=== PATIENT | female | born 1955 | race African-American/Black ===

== ENCOUNTER 2021-07-26 06:02 | Emergency (ER) | payer MEDICARE, SELFPAY ==
--- NOTE | ~2021-07-26 | XR_ITS ---
EXAMINATION: XR hip LT min 3V w AP pelvis EXAM DATE: 07/26/2021 06:48 INDICATION: Pain status post ground level fall this am. TECHNIQUE: Left hip frontal, crosstable lateral and 'frog-leg' projections for interpretation. Fronta l projection pelvis. There is no prior study for comparison. FINDINGS: Smooth left hip femoral head contour, no radiographic evidence of avascular necrosis. Ther e is mild to moderate symmetric bilateral hip primary osteoarthritis. There are no acute fractures or dislocations identified. There is no subcutaneous gas. The soft tissue is unremarkable. There ar e no radiopaque foreign bodies. IMPRESSION: 1. Pelvis, left hip exam without acute osseous findings. 2. Mild to moderate bilateral hip osteoarthritis. Reviewed, dictated and finalized at location A. ILE COATING MACHINE OPERATOR
--- NOTE | ~2021-07-26 | CT_ITS ---
EXAMINATION: CT cervical spine wo con, CT brain wo con EXAM DATE: 07/26/2021 07:01 INDICATION: Neck pain status post fall this morning. Head injury. TECHNIQUE: Spiral CT of the head was performed without contrast. Axial, coronal and sagittal images were reviewed. Spiral CT of the cervical spine was performed without contrast. Axial images were rev iewed. Coronal and sagittal reformatted images were also reviewed. The dose-length product (DLP) fo r this examination was 198.25 (accession [id number]), 681.00 (accession [id number]) mGy-cm. The exposure was tailored according to patient size, and iterative reconstruction (ASIR) was used as additional dose reduction technique. There is no prior study for comparison. FINDINGS: HEAD CT: There is no acute intraparenchymal hemorrhage. No evidence of intraparenchymal brain mass l esion. No evidence of acute infarction. There is no mass effect or midline shift. There is no obstru ctive hydrocephalus suspected. There are no extra-axial collections. There are no acute calvarial f ractures. The orbits are unremarkable. Soft tissue is unremarkable. The visualized sinuses and mas toid air cells are well aerated. CERVICAL CT: There is no evidence of acute cervical fracture. The odontoid process is intact. Pre- dens space is normal. Prevertebral soft tissue is normal. There are no soft tissue abnormalities id entified. There is no disc space widening or traumatic vertebral body subluxation suspected. Modera te cervical thoracic disc disease, mild to moderate cervical arthropathy. A detailed level by level evaluation of spondylosis can be added as addendum if requested. IMPRESSION: 1. No acute intracranial findings or cervical fracture. Reviewed, dictated and finalized at location A. ATOR SPECIALIST COMMUNICATIONS IMPRESSION: 1. No acute intracranial findings or cervical fracture.
--- NOTE | ~2021-07-26 | XR_ITS ---
EXAMINATION: XR shoulder LT min 2V EXAM DATE: 07/26/2021 06:48 INDICATION: pain status post ground level fall this AM . TECHNIQUE: The following left shoulder projections obtained: frontal projection with internal rotatio n, frontal projection with external rotation, Grashey, and scapular Y view (4+ views). There is no p rior study for comparison. FINDINGS: No evidence of left shoulder rotator cuff calcific tendinosis. There is mild glenohumeral joint, moderate acromioclavicular joint primary osteoarthritis. There are no acute fractures or dis locations identified. There is no subcutaneous gas. The soft tissue is unremarkable. There are no radiopaque foreign bodies. IMPRESSION: 1. XR shoulder LT min 2V exam without acute osseous findings. 2. Osteoarthritis. Reviewed, dictated and finalized at location A. MOTIVE FLEET SUPERVISOR
--- NOTE | ~2021-07-26 | XR_ITS ---
EXAMINATION: XR hand LT min 3V EXAM DATE: 07/26/2021 06:48 INDICATION: pain to left thumb status post fall this am . TECHNIQUE: Left hand frontal, lateral and oblique projections obtained and reviewed. There is no miranda or study for comparison. FINDINGS: Left metacarpal bones are unremarkable. There are no acute fractures or dislocations ident ified. There is no subcutaneous gas. The soft tissue is unremarkable. There are no radiopaque for eign bodies. IMPRESSION: 1. XR hand LT min 3V exam without acute osseous findings. Reviewed, dictated and finalized at location A. ESTER OPERATOR
[2021-07-26 06:00] VITALS: BP 131/73; PULSE 73; RESP 15; TEMP 36.4; O2SAT 95
[2021-07-26 06:08] VITALS: BP 131/73; PULSE 73; RESP 15; O2SAT 95
--- NOTE | 2021-07-26 06:25 | ED.GENADULT ---
HPI - General Adult General Chief complaint: Fall <Graeme Pierson MD - Last Filed: 07/26/21 06:29> Stated complaint: ground level fall <Graeme Pierson MD - Last Filed: 07/26/21 06:29> Time Seen by Provider: 07/26/21 06:12 <Graeme Pierson MD - Last Filed: 07/26/21 06:29> History of Present Illness HPI narrative: Patient 66-year-old female presents the emergency department with chief complaint of fall. Patient reports that she was walking into work tripped and landed on the ground. The patient reports she has pain in the left shoulder left hip left hand the patient reports that she has pain in her neck and also has a headache. Patient reports he has history of chronic pain and reports that her issues were aggravated by the fall. Patient denies loss of consciousness denies focal neurological deficit. <Graeme Pierson MD - Last Filed: 07/26/21 06:29> Related Data Home medications: Home Medications Medication Instructions Recorded Confirmed diclofenac sodium 1 % topical gel 2 g TOPICAL BID g 01/27/21 <Graeme Pierson MD - Last Filed: 07/26/21 06:29> Allergies/adverse reactions: Allergies Allergy/AdvReac Type Severity Reaction Status Date / Time acetaminophen Allergy Severe Swelling Verified 07/26/21 06:06 codeine Allergy Severe SWELLING Verified 07/26/21 06:06 morphine Allergy Severe Swelling Verified 07/26/21 06:06 naproxen Allergy Severe Swelling Verified 07/26/21 06:06 Penicillins Allergy Severe Rash Verified 07/26/21 06:06 propoxyphene Allergy Severe Swelling Verified 07/26/21 06:06 <Graeme Pierson MD - Last Filed: 07/26/21 06:29> Review of Systems Review of Systems: A 10 system review of systems was completed on the patient and is negative except for what is stated in the HPI. Nursing and ancillary documentation was reviewed. <Graeme Pierson MD - Last Filed: 07/26/21 06:29> Exam Narrative: GENERAL: Well-appearing, well-nourished, and in no acute distress. HEAD: Normocephalic, atraumatic. EYES: PERRLA and EOMI. ENT: Nares clear, no rhinorrhea or epistaxis. Mucous membranes moist. NECK: Supple. Tenderness to palpation the midline of the cervical spine CHEST: Clear to auscultation. No respiratory distress. HEART: Regular rate and rhythm. No murmur heard. Normal peripheral pulses. ABDOMEN: Soft, nontender, nondistended, normal active bowel sounds. EXTREMITIES: Normal range of motion. No edema. Tenderness to palpation in the left shoulder, left hand and left hip no deformity noted SKIN: Warm, dry, no rash. NEURO: No focal deficits. Alert and oriented x3. PSYCH: Normal mood and affect. <Graeme Pierson MD - Last Filed: 07/26/21 06:29> Course Vital Signs Vital signs: Vital Signs Temperature 36.4 C L 07/26/21 06:00 Pulse Rate 73 07/26/21 06:00 Respiratory Rate 15 07/26/21 06:00 Blood Pressure 131/73 07/26/21 06:00 Pulse Oximetry 95 07/26/21 06:00 Temperature 36.4 C L 07/26/21 06:00 Pulse Rate 100 07/26/21 07:16 Respiratory Rate 14 07/26/21 07:16 Blood Pressure 128/73 07/26/21 07:16 Pulse Oximetry 100 07/26/21 07:16 <Graeme Pierson MD - Last Filed: 07/26/21 06:29> Medical Decision Making Vital Signs Vital Signs: Vital Signs Temperature 36.4 C L 07/26/21 06:00 Pulse Rate 73 07/26/21 06:00 Respiratory Rate 15 07/26/21 06:00 Blood Pressure 131/73 07/26/21 06:00 Pulse Oximetry 95 07/26/21 06:00 Temperature 36.4 C L 07/26/21 06:00 Pulse Rate 100 07/26/21 07:16 Respiratory Rate 14 07/26/21 07:16 Blood Pressure 128/73 07/26/21 07:16 Pulse Oximetry 100 07/26/21 07:16 <Graeme Pierson MD - Last Filed: 07/26/21 06:29> Discharge Plan Discharge Clinical Impression: Fall, Contusion of multiple sites <Graeme Pierson MD - Last Filed: 07/26/21 06:29> Patient Dispositio
[2021-07-26 07:16] VITALS: BP 128/73; PULSE 100; RESP 14; O2SAT 100
[2021-07-26 08:25] VITALS: BP 123/80; PULSE 74; RESP 19; O2SAT 97
--- NOTE | 2021-07-26 08:25 | PC.NURSE ---
RN in to provided pt. with discharge instructions and edu. pt. asking why she did not have any medications prescribed to her. RN educated pt. that she can take ibuprofen and tylenol. states she cannot take those. pt. educated that she can take over the counter Tylenol despite being a bypass pt. pt. states I can't get on up out of here i took an ambulance. RN offered pt. to call someone on hospital phone or use cell phone to call a ride. pt. also offered to take bus home. pt. states she is not going to take the bus home because it is cold as hell out there. pt. tells RN you better get the hell up out my face. I should call the Charge nurse in here and give you a bad review. barrel finisher made aware.
== END 2021-07-26 08:25 | disposition home or self-care (01) ==
PROVIDERS: Emergency Provider Emergency Medicine; PCP Family Medicine
DX: S40.012A Contusion of left shoulder, initial encounter (principal); S70.02XA Contusion of left hip, initial encounter; W01.0XXA Fall on same level from slipping, tripping and stumbling without subsequent striking against object, initial encounter
CPT/HCPCS: 70450; 72125; 73030; 73130; 73502; 99284

== ENCOUNTER 2023-09-06 21:29 | Emergency (ER) | payer MEDICARE, SELFPAY ==
[2023-09-06 21:34] VITALS: BP 100/50; PULSE 70; RESP 17; TEMP 36.4; O2SAT 96
--- NOTE | 2023-09-06 22:43 | ED.EYEPROB ---
HPI - Eye Problem General Chief complaint: Eye Problems Stated complaint: super glue in right eye Time Seen by Provider: 09/06/23 21:45 Source: patient Mode of arrival: EMS Limitations: no limitations History of Present Illness HPI Narrative: This is a 68 year old female that presents to the ER for accidentally putting nail glue in her eye. Reports she had her nail glue next to her eye drops and accidentally put the glue in her eye. Reports pain, redness and tearing. Related Data Home Medications Medication Instructions Recorded Confirmed diclofenac sodium 1 % topical gel 2 g topical BID 01/27/21 Allergies Allergy/AdvReac Type Severity Reaction Status Date / Time acetaminophen Allergy Severe Swelling Verified 07/26/21 06:06 codeine Allergy Severe SWELLING Verified 07/26/21 06:06 morphine Allergy Severe Swelling Verified 07/26/21 06:06 naproxen Allergy Severe Swelling Verified 07/26/21 06:06 Penicillins Allergy Severe Rash Verified 07/26/21 06:06 propoxyphene Allergy Severe Swelling Verified 07/26/21 06:06 Review of Systems Review of Systems: CONSTITUTIONAL: Denies fever EYES: Reports redness, and discharge. Denies vision changes All systems reviewed & are unremarkable except as noted in HPI and below PMFSH Past Medical History Medical History (Updated 09/07/23 @ 00:31 by Carmela Mina PA-C) History of glaucoma Social History Social History (Updated 09/06/23 @ 22:45 by Carmela Mina PA-C) Substance use: never Exam Narrative: GENERAL: Well-appearing, well-nourished, and in no acute distress. HEAD: Normocephalic, atraumatic. EYES: PERRLA and EOMI. Right conjunctival injection. Right eye with glue in the medial canthus and over the cornea. EXTREMITIES: Normal range of motion. No edema. SKIN: Warm, dry, no rash. NEURO: No focal deficits. Alert and oriented x3. PSYCH: Normal mood and affect Course Course Emergency Course: Patient agrees with plan of care Vital Signs Vital signs: Vital Signs Temperature 97.5 F L 09/06/23 21:34 Pulse Rate 70 09/06/23 21:34 Respiratory Rate 17 09/06/23 21:34 Blood Pressure 100/50 L 09/06/23 21:34 Pulse Oximetry 96 09/06/23 21:34 Oxygen Delivery Room Air 09/06/23 21:34 Temperature 97.5 F L 09/06/23 21:34 Pulse Rate 70 09/06/23 21:34 Respiratory Rate 17 09/06/23 21:34 Blood Pressure 100/50 L 09/06/23 21:34 Pulse Oximetry 96 09/06/23 21:34 Oxygen Delivery Room Air 09/06/23 21:34 Procedures FB Removal Eye Foreign Body #1: Foreign Body Removal Date: 09/07/23 Foreign Body Removal Time: 23:30 Time Out performed: Yes Location: eye (R) Topical anesthetic used: tetracaine Foreign body: other (glue) Evidence of corneal penetration: No Technique: other (tweezers) Procedure performed under: direct visualization with magnification Post-procedure medication: ophthalmic antibiotic Patient tolerated procedure: well and no complications Foreign Body Removal Narrative: Glue successfully removed by Dr. Mancilla. Positive fluorescein stain uptake with small corneal abrasion noted MDM - Eye Problem MDM Narrative Medical decision making narrative: Patient presents to the emergency department after accidentally putting nail glue in her eye. This was successfully removed. Her eye was irrigated. She does have a small corneal abrasion. Will be started on topical antibiotics. She has no visual changes. She does have an sales support administrator that she sees. She was instructed to have close follow-up with her doctor. She was given warnings to return to the ER Differential Diagnosis Differential diagnosis: Likely corneal abrasion and other ( eye foreign bodies) Critical Care Time Critical Care Time Critical Care Time: No Discharge Plan Discharge Clinical Impression: Corneal abrasion Qualifiers: Encounter type: initial encounter Laterality: right Shivam
[2023-09-07] MEDS: ERYTHROMYCIN OPHTH OINTMENT 1 GM TUBE 1 APPLIC RIGHT EYE (00:25)
== END 2023-09-07 00:33 | disposition home or self-care (01) ==
PROVIDERS: Emergency Provider Physician Assistant; PCP Family Medicine
DX: T15.01XA Foreign body in cornea, right eye, initial encounter (principal); H40.9 Unspecified glaucoma; W44.8XXA Other foreign body entering into or through a natural orifice, initial encounter
CPT/HCPCS: 65220; 99283; A9270

== ENCOUNTER 2024-02-03 09:23 | Emergency (ER) | payer OTHER, MEDICARE, SELFPAY ==
[2024-02-03 09:35] VITALS: BP 146/72; PULSE 57; RESP 14; TEMP 36.5; O2SAT 100
[2024-02-03 11:40] VITALS: BP 164/79; PULSE 62; RESP 20; O2SAT 100
[2024-02-03] MEDS: PROCHLORPERAZINE EDISYLATE 10 MG/2 ML VIAL IV PUSH (13:19)
[2024-02-03] MEDS: SODIUM CHLORIDE 0.9% IV 1,000 ML 999 ML IV CONT (13:19)
[2024-02-03] MEDS: diphenhydrAMINE HCl INJ 50 MG/ML VIAL 25 MG IV PUSH (13:19)
[2024-02-03 13:26] VITALS: BP 155/89; PULSE 67; RESP 16; O2SAT 100
--- NOTE | 2024-02-03 14:27 | ED.HA ---
HPI - Headache General Chief Complaint: Headache Stated Complaint: HEAD PAIN Time Seen by Provider: 02/03/24 11:54 History of Present Illness HPI Narrative: This is a 69-year-old female, with history of concussion with headaches since May 2023, who presents emergency department complaining of headache, lightheadedness and nausea. The patient states she was seen at her physical therapist 4 days ago, when she developed a throbbing headache, associated with cramping pain in the bilateral posterior neck, associated with lightheadedness and nausea. She denies weakness/numbness or change/loss of vision/hearing. She states this is gradually worsening. She has no other complaints at this time. Related Data Home Medications Medication Instructions Recorded Confirmed diclofenac sodium 1 % topical gel 2 g topical BID 01/27/21 Allergies Allergy/AdvReac Type Severity Reaction Status Date / Time acetaminophen Allergy Severe Swelling Verified 02/03/24 11:41 codeine Allergy Severe SWELLING Verified 02/03/24 11:41 morphine Allergy Severe Swelling Verified 02/03/24 11:41 naproxen Allergy Severe Swelling Verified 02/03/24 11:41 Penicillins Allergy Severe Rash Verified 02/03/24 11:41 propoxyphene Allergy Severe Swelling Verified 02/03/24 11:41 Review of Systems Review of Systems: All systems reviewed & are unremarkable except as noted in HPI and below PMFSH Past Medical History Medical History Concussion History of glaucoma Surgical History Surgical History No significant past surgical history Social History Social History Smoking status: Never smoker Alcohol intake: never Substance use: never Exam Narrative: GENERAL: Well-developed, well-nourished, and in no acute distress. HEAD: Normocephalic, atraumatic. EYES: PERRLA and EOMI. CHEST: Clear to auscultation. No respiratory distress. No wheezes rales or rhonchi HEART: Regular rate and rhythm. No murmur heard. Normal peripheral pulses. ABDOMEN: Soft, nontender, nondistended, normal active bowel sounds. EXTREMITIES: Normal range of motion. No edema. SKIN: Warm, dry, no rash. NEURO: Alert and oriented x3. No focal deficit. Moving all 4 limbs spontaneously PSYCH: Normal mood and affect. Course Course Emergency Course: 15:02 - On re-evaluation, the patient states her headache is improved. She feels comfortable with discharge. Discussed return and emergency precautions including signs/symptoms of intracranial hemorrhage and stroke. The patient voiced understanding and agreement with the plan. All questions answered to her satisfaction. Vital Signs Vital signs: Vital Signs Temperature 97.7 F 02/03/24 09:35 Pulse Rate 57 L 02/03/24 09:35 Respiratory Rate 14 02/03/24 09:35 Blood Pressure 146/72 H 02/03/24 09:35 Pulse Oximetry 100 02/03/24 09:35 Oxygen Delivery Room Air 02/03/24 09:35 Temperature 97.7 F 02/03/24 09:35 Pulse Rate 67 02/03/24 13:26 Respiratory Rate 16 02/03/24 13:26 Blood Pressure 155/89 H 02/03/24 13:26 Pulse Oximetry 100 02/03/24 13:26 Oxygen Delivery Room Air 02/03/24 09:35 MDM - Headache MDM Narrative Medical decision making narrative: Plan: Pain control, IV fluids, antiemetics, reassess Differential Diagnosis Differential diagnosis: Likely migraine, tension headache, headache, postconcussion syndrome and other Discharge Plan Discharge Clinical Impression: Post-concussion headache Patient Disposition: Home, Self-Care Condition: Stable Instructions: Antibiotic Form, Post Concussion Syndrome (ED) Additional Instructions: You were seen in the emergency department. Your exam was reassuring. You were given IV fluids, nausea medications and Benadryl with improvement. I recommend following up with your primary c
[2024-02-03 14:30] VITALS: BP 154/71; PULSE 80; RESP 20; O2SAT 97
== END 2024-02-03 14:29 | disposition home or self-care (01) ==
PROVIDERS: Emergency Provider Preventive Medicine Aerospace Medicine
DX: G44.309 Post-traumatic headache, unspecified, not intractable (principal); R11.0 Nausea
CPT/HCPCS: 96361; 96374; 96375; 99284; J0780; J1200; J7030